=== PATIENT | male | born 1990 | race Hispanic/Latino ===

== ENCOUNTER → 2018-10-25 | Outpatient (CLI) | payer OTHER ==
--- NOTE | 2018-10-25 12:00 | REP ---
BILATERAL KNEES, NINE VIEWS: HISTORY: Bilateral pain. RIGHT KNEE: There is no acute fracture or dislocation. There is minimal narrowing of the medial knee joint space. The lateral knee joint space and patellofemoral joint space are normal in appearance. IMPRESSION: Degenerative change as described above. LEFT KNEE: There is no acute fracture or dislocation. The joint spaces are normal in appearance. IMPRESSION: There is no acute fracture or dislocation. Electronically Signed by Compa Warner MD 10/25/2018 12:10 P
== END ==
LOC: M RAD 08:56
PROVIDERS: ATTEND Surgery
DX: M25.561 Pain in right knee (principal); M25.562 Pain in left knee; M17.11 Unilateral primary osteoarthritis, right knee